=== PATIENT | male | born 1970 | race Asian ===

== ENCOUNTER 2018-05-10 09:02 | Outpatient (CLI) | payer OTHER ==
--- NOTE | 2018-05-10 10:14 | ULT ---
ABDOMINAL ULTRASOUND: Indications: Epigastric pain. FINDINGS: Images of the gallbladder show mild echogenic sludge. No gallstones identified. Gallbladder wall is n ormal. Common duct is normal caliber measured at 3 mm. The liver is homogeneous. Spleen appears normal. Visualized abdominal aorta and IVC unremarkable. The pancreas is mostly obscured but appears unremarkable as visualized. Both kidneys are imaged and appear unremarkable. No hydronephrosis. IMPRESSION: 1. Mild echogenic sludge seen in the gallbladder. No evidence of gallstones identified. Technologist described a negative Hayes's sign. POS: [facility]
== END 2018-05-10 09:03 | disposition home or self-care (01) ==
LOC: SCSULT 09:02
PROVIDERS: ATTEND Family Medicine
DX: R10.13 Epigastric pain (principal); K82.8 Other specified diseases of gallbladder
CPT/HCPCS: 76700